=== PATIENT | male | born 1955 | race Caucasian/White ===

== ENCOUNTER → 2023-04-24 18:30 | Outpatient (REF) | payer BC, SELFPAY | LOC: PAVMRI 18:30 | PROVIDERS: ATTENDING PHYSICIAN Family Medicine | DX: M54.50 Low back pain, unspecified (principal) | CPT/HCPCS: 72148 ==

== ENCOUNTER → 2025-01-09 13:10 | Outpatient (REF) | payer BC, SELFPAY | LOC: PAVMRI 13:10 | PROVIDERS: ATTENDING PHYSICIAN Anesthesiology Pain Medicine; FAMILY PHYSICIAN Family Medicine | DX: M54.2 Cervicalgia (principal); M48.02 Spinal stenosis, cervical region | CPT/HCPCS: 72141 ==